=== PATIENT | male | born 1970 | race Caucasian/White ===

== ENCOUNTER 2020-05-13 11:59 | Emergency (ER) | payer OTHER, SELFPAY ==
[2020-05-13 12:18] VITALS: BP 144/86; PULSE 94; RESP 16; TEMP 36.8; O2SAT 98; BMI 25.7
--- NOTE | 2020-05-13 12:40 | HMH.EDUTC ---
[facility] [place] Disposition Clinical Impression: Bronchitis, Exposure to COVID-19 virus Disposition: Home, Self-Care Condition on Discharge: Good Instructions: Preventing the Spread of Coronavirus Discharge Instructions Additional Instructions: Drink plenty of fluids. Take tylenol for pain or fever. Take the medications as directed. Follow up with your regular doctor. GO TO THE ER FOR ANY WORSENING SYMPTOMS Prescriptions: Brompheniramine/Pseudoephed/Dm [Bromfed Dm Cough Syrup] 5 ml PO Q6HP PRN #240 syrup PRN Reason: Cough Transmission Status: Received by [facility] Azithromycin [Z-Cooper 250mg Tab*] 250 mg PO UD DOSE PK #6 tab Transmission Status: Received by [facility] Referrals: Moncho Miller MD [Primary Care Provider] - Time of Disposition: 12:42 Medical Decision Making - Medical Records Medical records reviewed: No: I reviewed the patient's medical records. - Rl Inquiry Pt receiving controlled substance: No Vital Signs: 05/13/20 12:18 05/13/20 12:46 Temperature 98.2 F 98.6 F Temperature Source Oral Oral Pulse Rate 87 Pulse Rate [Right] 94 H Respiratory Rate 16 16 Blood Pressure 142/70 H Blood Pressure [Right Arm] 144/86 H Blood Pressure Mean [Right Arm] 105 Blood Pressure Source Automatic Cuff Blood Pressure Source [Right Arm] Automatic Cuff Blood Pressure Position Sitting Blood Pressure Position [Right Arm] Sitting 02 Sat by Pulse Oximetry 98 Oxygen Delivery Method Room Air Room Air [facility] [place] HPI - General Time Seen by Provider: 05/13/20 12:40 Mode of Arrival: Ambulatory Source of Information: Patient Limitations: No Limitations HEENT Symptoms (Recalled from RN notes): Yes (congestion, cough) Resp Symptoms (Recalled from RN notes): No Skin Symptoms (Recalled from RN notes): No MS Symptoms (Recalled from RN notes): No Functional Status (Recalled from RN notes): na - History of Present Illness Provider Complaint: He states that over the past 2 days he has had a cough, fever, chills, sore throat and n/v. His employer had him come here to get tested for covid. - Related Data Home Medications Medication Instructions Recorded Confirmed ALPRAZolam [Xanax 1mg tab] 1 mg PO BID 08/14/18 08/14/18 Finasteride [Proscar 5mg Tablet] 5 mg PO DAILY 01/28/18 01/28/18 Metoprolol Tartrate [Lopressor 25 mg PO BID 01/28/18 01/28/18 25mg tablet] lisinopriL [Lisinopril 2.5mg Tab] 2.5 mg PO DAILY 01/28/18 01/28/18 Previous Rx's Medication Instructions Recorded Azithromycin [Z-Cooper 250mg Tab*] 250 mg PO UD DOSE PK #6 tab 05/13/20 Brompheniramine/Pseudoephed/Dm 5 ml PO Q6HP PRN #240 syrup 05/13/20 [Bromfed Dm Cough Syrup] Allergies Allergy/AdvReac Type Severity Reaction Status Date / Time etodolac [From Lodine] Allergy Verified 01/28/18 20:36 - Worker's Comp Is this a Worker's Comp case?: No [facility] History - Hepatitis A Screen Drug use history?: No High risk sexual behaviors?: No History of sexually transmitted infection?: No Currently employed?: No Childcare worker?: No Do you have indoor plumbing?: Yes Do you have electricity?: Yes Attestation statement:: This patient has been screened for Hepatitis A risk factors. I have reviewed the patient's past medical history: Yes Medical History: Denies:: Cancer, Diabetes Mellitus Type 1, Diabetes Mellitus Type 2, MRSA Amputation: No Fractures: No - Social History Smoking Status: Current every day smoker Tobacco Type: cigarettes Alcohol Intake: current ROS Obtained: Yes All systems reviewed & no additional complaints - Constitutional Constitutional: Reports system reviewed and no additional complaints, except as docu - Eyes Eyes: Reports system reviewed and no additional complaints, except as docu - ENT Ears, Nose, Mouth, and Throat: Reports system reviewed and no additional complaints, except as docu - Cardiovascular Cardiovascular: Reports system reviewed and no ad
[2020-05-13 12:46] VITALS: BP 142/70; PULSE 87; RESP 16; TEMP 37; O2SAT 98
== END 2020-05-13 12:47 | disposition home or self-care (01) ==
PROVIDERS: Emergency Provider Nurse Practitioner Family; PCP Family Medicine
DX: J40 Bronchitis, not specified as acute or chronic (principal); Z20.828 Contact with and (suspected) exposure to other viral communicable diseases
CPT/HCPCS: 99201; U0003

== ENCOUNTER 2021-04-21 13:22 | Emergency (ER) | payer OTHER, SELFPAY ==
[2021-04-21 13:41] VITALS: BP 158/100; PULSE 74; RESP 16; TEMP 36.9; O2SAT 100; BMI 29.0
[2021-04-21 14:45] VITALS: BP 0/0; PULSE 0; RESP 0; TEMP -17.7; TEMP 0
== END 2021-04-21 14:47 | disposition left against medical advice (07) ==
LOC: UTC 13:41
PROVIDERS: Emergency Provider Physician Assistant; PCP Family Medicine
DX: Z53.21 Procedure and treatment not carried out due to patient leaving prior to being seen by health care provider (principal)

== ENCOUNTER 2021-04-28 16:22 | Emergency (ER) | payer OTHER, SELFPAY ==
[2021-04-28 16:22] VITALS: BP 138/105; PULSE 85; RESP 11; TEMP 36.9; O2SAT 98; BMI 25.0
--- NOTE | 2021-04-28 16:22 | ECG_ITS ---
APPROVED REPORT Exam: Resting ECG HR:80 bpm ECG Measurements Heart Rate 80 AXES GA 98 P 32 QRSd 80 QRS 49 QT 344 T 46 QTc 396 Conclusion Sinus rhythm with short GA Otherwise normal ECG Electronically signed by : John Voss MD 04/30/2021 08:32:34
--- NOTE | 2021-04-28 16:25 | XR_ITS ---
PROCEDURE INFORMATION: Exam: XR Chest Exam date and time: 04/28/2021 4:25 PM Age: 51 years old Clinical indication: Cough TECHNIQUE: Imaging protocol: XR of the chest. Views: 1 view. COMPARISON: No relevant prior studies available. FINDINGS: Lungs: No lobar consolidation, effusion or edema. Pleural spaces: Unremarkable. No pleural effusion. No pneumothorax. Heart/Mediastinum: Unremarkable. No cardiomegaly. Bones/joints: Unremarkable. IMPRESSION: No lobar consolidation, effusion or edema.
[2021-04-28 17:19] LABS: Basophils # 0.1 K/mm3 (0-0.2); Basophils % 0.8 % (0.1-2.0); Eosinophils # 0.1 K/mm3 (0.0-0.4); Eosinophils % 1.1 % (0.1-12.0); Hematocrit 49.4 % (42.0-52.0); Hemoglobin 16.6 g/dL (14.1-18.0); Lymphocytes # 1.7 K/mm3 (0.7-4.5); Mean Corpuscular HGB Conc 33.6 g/dL (31.8-35.4); Mean Corpuscular Hemoglobin 35.4 pg (27.0-31.2); Mean Corpuscular Volume 105.2 fl (80-94); Mean Platelet Volume 7.9 fl (7.4-10.4); Monocytes # 0.6 K/mm3 (0.1-1.0); Monocytes % 7.6 % (1.7-9.3); Neutrophils # 5.4 K/mm3 (1.8-7.8); Neutrophils % 68.5 % (37.0-80.0); Platelet Count 324 K/mm3 (142-424); Red Blood Count 4.69 M/mm3 (4.60-6.20); Red Cell Distribution Width 13.2 % (11.5-17.5); White Blood Count 7.9 K/mm3 (4.8-10.8)
[2021-04-28 17:34] LABS: Chloride 98 mmol/L (98-107); Sodium 132 mmol/L (136-145)
[2021-04-28 17:35] LABS: Potassium 3.9 mmoL/L (3.5-5.1)
[2021-04-28 17:37] LABS: Blood Urea Nitrogen 16 mg/dl (9-20); Creatinine Clearance Estimated 149 mL/min (50-200); Estimated Glomerular Filt Rate 118 ml/min (>60); GFR (African American) 143 ML/MIN (>60)
[2021-04-28 17:38] LABS: Anion Gap 12.9 mEq/L (5-15); Calcium 8.8 mg/dl (8.4-10.2); Carbon Dioxide 25 mmol/L (22.0-30.0); Glucose 95 mg/dl (74-100)
[2021-04-28 17:47] LABS: NT Pro Brain Natriuretic Pep. 651 pg/mL (0-125)
[2021-04-28 17:57] LABS: Troponin I < 0.01 ng/ml (0.00-0.034)
--- NOTE | 2021-04-28 18:52 | HMH.EDARPALP ---
ED Disposition Clinical Impression: Palpitations, Anxiety Disposition: Home, Self-Care Condition on Discharge: Good Instructions: DI for Palpitations Referrals: Moncho Miller MD [Primary Care Provider] - Antonio Roberson MD [Staff Physician] - - Critical Care Critical Care Time: No Attestation: On 04/28/21, the high probability of a clinically significant, sudden or life threatening deterioration of the following system(s) required my full and direct attention, intervention and personal management. The time I documented below is in addition to time spent performing reported procedures but includes the following listed in this critical care notation. Medical Decision Making - Medical Records Medical records reviewed: Yes: I reviewed the patient's medical records. - Rl Inquiry Pt receiving controlled substance: No Vital Signs: 04/28/21 16:22 Temperature 98.4 F Temperature Source Oral Pulse Rate [Right Radial] 85 Respiratory Rate 11 L Blood Pressure [Right Arm] 138/105 H Blood Pressure Mean [Right Arm] 116 Blood Pressure Source [Right Arm] Automatic Cuff Blood Pressure Position [Right Arm] Sitting 02 Sat by Pulse Oximetry 98 Oxygen Delivery Method Room Air - Lab Data Lab Results 04/28/21 17:07: WBC 7.9, RBC 4.69, Hgb 16.6, Hct 49.4, MCV 105.2 H, MCH 35.4 H, MCHC 33.6, RDW 13.2, Plt Count 324, MPV 7.9, Neut % (Auto) 68.5, Lymph % (Auto) 22.0, [place] % (Auto) 7.6, Eos % (Auto) 1.1, Baso % (Auto) 0.8, Neut # (Auto) 5.4, Lymph # (Auto) 1.7, [place] # (Auto) 0.6, Eos # (Auto) 0.1, Baso # (Auto) 0.1 04/28/21 17:07: Sodium 132 L, Potassium 3.9, Chloride 98, Carbon Dioxide 25, Anion Gap 12.9, BUN 16, Creatinine 0.70, Estimated Creat Clear 149, Estimated GFR 118, Est GFR ( Amer) 143, Glucose 95, Calcium 8.8, Troponin I < 0.01, NT-Pro-B Natriuret Pep 651 H Result diagrams: 04/28/21 17:07 04/28/21 17:07 Orders (Tests/Meds): ORDERS Category Date Time Status Troponin I Q3H Lab 04/28/21 19:30 Ordered Troponin I Q3H Lab 04/28/21 22:30 Ordered - Radiology Data #1 Image(s): Chest Image Reviewed: Yes I reviewed the patient's radiology results, Yes I discussed the image results w/the radiologist IMPRESSION: No lobar consolidation, effusion or edema. - ECG Data Tracing #1 I reviewed this ECG and interpreted as documented below: ECG initial impression date: 04/28/21 ECG initial impression time: 16:22 ECG normal with no acute: arrhythmias, ischemia, conduction abnormalities, chamber hypertrophy Normal Sinus Rhythm: Yes - Reevaluation(s) Time: 18:55 Reevaluation #1: On reevaluation, patient is feeling better. No dysrhythmia while in the emergency department. Troponin negative. Patient follow-up with cardiology. Given strict return precautions. Verbalized understanding. Medical Decision Narrative: 51-year-old male presented to the emergency department with some palpitations. Patient appears hemodynamically stable at this time. Work-up initiated Arrhythmia/Palpitations HPI - General Chief Complaint: Arrhythmia/Palpitations Stated Complaint: chest pain Time Seen by Provider: 04/28/21 16:30 Mode of Arrival: Ambulatory Limitations: No Limitations - History of Present Illness HPI narrative: 51-year-old male presented to the emergency department with some palpitations. Patient states that he has a longstanding history of some palpitations. He felt some this morning and got concerned about that. Patient states that he has been very stressed lately and very anxious. Feels like his heart is racing. Denies any associated pain with that. He is not having shortness of breath or cough. No hemoptysis. Denies any headache or change in vision. No focal weakness. No abdominal pain or vomiting. No diarrhea. - Related Data Home Medications Medication Instructions Recorded Confirmed ALPRAZolam [Xanax 1mg tab] 1 mg PO BID 01/28/18 01/28/18 Fi
[2021-04-28 18:59] VITALS: BP 135/95; PULSE 84; RESP 18; TEMP 36.7; O2SAT 99
== END 2021-04-28 19:00 | disposition home or self-care (01) ==
PROVIDERS: Emergency Provider Emergency Medicine; PCP Family Medicine
DX: R07.9 Chest pain, unspecified (principal); R00.2 Palpitations; F17.210 Nicotine dependence, cigarettes, uncomplicated; F41.9 Anxiety disorder, unspecified
CPT/HCPCS: 71045; 80048; 83880; 84484; 85025; 93005; 99283